=== PATIENT | female | born 1995 | race Caucasian/White ===

== ENCOUNTER 2024-06-13 17:54 | Inpatient (IN) ==
[2024-06-13] MEDS ORDERED: IOPAMIDOL 100 ML BOTTLE IV ONE (17:55)
[2024-06-13 18:36] LABS: Basophils # (Auto) 0.03 K/mcL (0.00-0.30); Basophils % (Auto) 0.2 % (0.0-2.0); Eosinophils # (Auto) 0.01 K/mcL (0.00-0.70); Eosinophils % (Auto) 0.1 % (0.0-7.0); Hemoglobin 13.4 g/dL (11.2-15.7); Lymphocytes # (Auto) 2.18 K/mcL (1.50-4.80); Lymphocytes % (Auto) 13.1 % (15.5-49.0); Mean Cell Volume 90.7 fL (80.0-100.0); Mean Corpuscular HGB Conc 32.7 g/dL (31.0-36.0); Mean Platelet Volume 10.9 fL (8.8-12.5); Monocytes # (Auto) 0.59 K/mcL (0.10-0.90); Monocytes % (Auto) 3.5 % (1.0-12.0); Neutrophils % (Auto) 82.9 % (38.0-78.0); Platelet Count 368 K/mcL (140-440); RBC 4.52 M/mcL (3.59-5.38); WBC 16.7 K/mcL (4.5-11.0)
[2024-06-13] MEDS: LACTATED RINGERS 1,000 ML IV ONE (18:50)
[2024-06-13] MEDS: fentaNYL 100 MCG/2 ML VIAL IV ONE (18:59)
[2024-06-13] MEDS: ONDANSETRON 4 MG/2 ML VIAL IV ONE (19:00)
[2024-06-13 19:03] LABS: ALT/SGPT 90 U/L (<40); AST/SGOT 77 U/L (<32); Albumin 4.2 gm/dL (3.2-5.2); Albumin/Globulin Ratio 1.6 (1.0-2.3); Alkaline Phosphatase 95 U/L (39-117); Bilirubin,Total 0.7 mg/dL (0.1-1.0); Blood Urea Nitrogen 9 mg/dL (6-20); Carbon Dioxide 21 mmol/L (22-30); Chloride 105 mmol/L (96-108); Globulin 2.7 gm/dL (2.2-3.7); Glomerular Filtration Rate 119; Glucose 166 mg/dL (70-105); Phosphorous 3.8 mg/dL (2.5-4.5); Sodium 138 mmol/L (133-145)
[2024-06-13] MEDS: HYDROmorphone 0.5 MG/0.5 ML SYRINGE IV ONE (19:45)
[2024-06-13 20:10] LABS: HCG,Serum Negative
[2024-06-13] MEDS: HYDROmorphone 1 MG/ML SYRINGE IV ONE (22:25)
[2024-06-13] MEDS: HYDROmorphone 1 MG/ML SYRINGE IM ONE (22:26)
[2024-06-13 23:00] LABS: Appearance,Urine Clear (Clear); Bacteria,Urine 0 /hpf (0); Bilirubin,Urine Small mg/dL (Negative); Color,Urine Yellow; Culture Indicated,Urine No; Glucose,Urine (UA) 100 mg/dL (Negative); Ketones,Urine >=160 mg/dL (Negative); Leukocyte Esterase,Urine Negative /uL (Negative); Nitrate,Urine Negative (Negative); PH,Urine 6.5 (5.0-9.0); Protein,Urine Negative (Negative); Specific Gravity,Urine 1.015 (1.000-1.035); Urine Blood Negative ery/mcL (Negative); Urine RBC 1 /hpf (0-3); Urine Squamous Epithelial Cell 1 /hpf (0-4); Urine WBC 1 /hpf (0-4)
[2024-06-13] MEDS: PIPERACILLIN SODIUM/TAZOBACTAM 3.375 GM in DEXTROSE 5% IN WATER 100 ML IV SCH (23:49)
[2024-06-14] MEDS: DEXTROSE 5%-LR 1,000 ML IV SCH (02:04)
[2024-06-14] MEDS: HYDROmorphone 0.5 MG/0.5 ML SYRINGE IV PRN ×2 (02:17→18:34)
[2024-06-14] MEDS: ONDANSETRON 4 MG/2 ML VIAL IV PRN (06:24)
[2024-06-14 07:32] LABS: Hematocrit 38.1 % (34.1-44.9); Hemoglobin 12.5 g/dL (11.2-15.7); Mean Cell Volume 91.4 fL (80.0-100.0); Mean Corpuscular HGB Conc 32.8 g/dL (31.0-36.0); Mean Platelet Volume 11.5 fL (8.8-12.5); Platelet Count 265 K/mcL (140-440); RBC 4.17 M/mcL (3.59-5.38); Red Cell Distribution Width 12.9 % (11.5-14.5); WBC 10.9 K/mcL (4.5-11.0)
[2024-06-14 07:45] LABS: ALT/SGPT 116 U/L (<40); AST/SGOT 85 U/L (<32); Albumin 3.6 gm/dL (3.2-5.2); Albumin/Globulin Ratio 1.6 (1.0-2.3); Alkaline Phosphatase 83 U/L (39-117); Bilirubin,Total 0.5 mg/dL (0.1-1.0); Blood Urea Nitrogen 7 mg/dL (6-20); Calcium 8.5 mg/dL (8.6-10.4); Carbon Dioxide 22 mmol/L (22-30); Chloride 107 mmol/L (96-108); Globulin 2.2 gm/dL (2.2-3.7); Glomerular Filtration Rate 119; Glucose 128 mg/dL (70-105); Sodium 140 mmol/L (133-145)
[2024-06-14] MEDS ORDERED: fentaNYL 100 MCG/2 ML VIAL ONE ×2 (09:05→10:38)
[2024-06-14] MEDS ORDERED: PROPOFOL 200 MG/20 ML VIAL IV ONE (09:05)
[2024-06-14] MEDS ORDERED: MIDAZOLAM 2 MG/2 ML VIAL ONE ×2 (09:05→09:46)
[2024-06-14] MEDS ORDERED: ONDANSETRON 4 MG/2 ML VIAL ONE (09:09)
[2024-06-14] MEDS ORDERED: ROCURONIUM 10 MG/ML ML IV ONE ×2 (09:09→13:06)
[2024-06-14] MEDS ORDERED: LIDOCAINE 2% PF 5 ML VIAL ONE (09:09)
[2024-06-14] MEDS ORDERED: GLYCOPYRROLATE 0.2 MG/ML VIAL IV ONE (09:46)
[2024-06-14] MEDS: BUPIVACAINE W/EPI 0.25% 50 ML VIAL IJ ONE (09:57)
[2024-06-14] MEDS ORDERED: MEPERIDINE 25 MG/ML VIAL IV PRN (10:20)
[2024-06-14] MEDS ORDERED: fentaNYL 100 MCG/2 ML VIAL IV PRN (10:20)
[2024-06-14] MEDS ORDERED: IPRATROPIUM/ALBUTEROL 3 ML AMPUL.NEB NEB PRN ×2 (10:20→14:20)
[2024-06-14] MEDS ORDERED: METOCLOPRAMIDE 10 MG/2 ML VIAL IV PRN ×2 (10:20→14:20)
[2024-06-14] MEDS ORDERED: MAGNESIUM SULFATE 2 GM/50 ML BAG IV ONE (10:22)
[2024-06-14] MEDS ORDERED: HYDROmorphone 1 MG/ML SYRINGE ONE (11:30)
[2024-06-14] MEDS: GELATIN SPONGE,ABSORBABLE 1 EACH SPONGE TOPICAL ONE ×2 (12:49→13:12)
[2024-06-14] MEDS: THROMBIN (BOVINE) 5,000 UNIT VIAL TOPICAL ONE ×2 (12:51→13:12)
[2024-06-14] MEDS ORDERED: TRANEXAMIC ACID 1,000 MG/10 ML VIAL ONE (13:06)
[2024-06-14] MEDS ORDERED: SUGAMMADEX SODIUM 200 MG/2 ML VIAL IV ONE (13:33)
[2024-06-14] MEDS ORDERED: ONDANSETRON 4 MG/2 ML VIAL IV PRN (14:20)
[2024-06-14] MEDS: fentaNYL 100 MCG/2 ML VIAL IV PRN (14:39)
[2024-06-14] MEDS: ACETAMINOPHEN 1,000 MG/100 ML BAG IV ONE (14:53)
[2024-06-14] MEDS: MEPERIDINE 25 MG/ML VIAL IV PRN (14:56)
[2024-06-14 18:12] LABS: Basophils # (Auto) 0.01 K/mcL (0.00-0.30); Basophils % (Auto) 0.1 % (0.0-2.0); Eosinophils # (Auto) 0 K/mcL (0.00-0.70); Eosinophils % (Auto) 0 % (0.0-7.0); Hematocrit 35.7 % (34.1-44.9); Hemoglobin 11.4 g/dL (11.2-15.7); Lymphocytes # (Auto) 0.94 K/mcL (1.50-4.80); Lymphocytes % (Auto) 6.7 % (15.5-49.0); Mean Cell Volume 93.5 fL (80.0-100.0); Mean Corpuscular HGB Conc 31.9 g/dL (31.0-36.0); Monocytes # (Auto) 0.49 K/mcL (0.10-0.90); Monocytes % (Auto) 3.5 % (1.0-12.0); Neutrophils % (Auto) 89.5 % (38.0-78.0); Platelet Count 274 K/mcL (140-440); RBC 3.82 M/mcL (3.59-5.38); Red Cell Distribution Width 13.1 % (11.5-14.5); WBC 14.1 K/mcL (4.5-11.0)
[2024-06-14] MEDS: oxyCODONE IR 5 MG TABLET PO PRN (19:22)
[2024-06-14] MEDS: HYDROmorphone 1 MG/ML SYRINGE ONE (21:17)
[2024-06-14] MEDS: ACETAMINOPHEN 650 MG/65 ML BAG IV PRN (21:24)
[2024-06-15] MEDS: PROMETHAZINE 50 MG/ML AMPUL IM PRN (01:07)
[2024-06-15 07:06] LABS: Hematocrit 36.3 % (34.1-44.9); Hemoglobin 11.6 g/dL (11.2-15.7); Mean Cell Volume 93.6 fL (80.0-100.0); Mean Platelet Volume 11.5 fL (8.8-12.5); Platelet Count 313 K/mcL (140-440); RBC 3.88 M/mcL (3.59-5.38); Red Cell Distribution Width 13.2 % (11.5-14.5); WBC 11.5 K/mcL (4.5-11.0)
[2024-06-15] MEDS: 0.9 % SODIUM CHLORIDE 250 ML IV SCH (07:10)
[2024-06-15 07:57] LABS: ALT/SGPT 152 U/L (<40); AST/SGOT 111 U/L (<32); Albumin 3.5 gm/dL (3.2-5.2); Albumin/Globulin Ratio 1.8 (1.0-2.3); Alkaline Phosphatase 81 U/L (39-117); Bilirubin,Total 2.7 mg/dL (0.1-1.0); Blood Urea Nitrogen 3 mg/dL (6-20); Calcium 7.9 mg/dL (8.6-10.4); Carbon Dioxide 23 mmol/L (22-30); Chloride 106 mmol/L (96-108); Globulin 1.9 gm/dL (2.2-3.7); Glomerular Filtration Rate 119; Glucose 194 mg/dL (70-105); Potassium 3.8 mmol/L (3.3-5.1); Sodium 139 mmol/L (133-145)
[2024-06-15] MEDS ORDERED: ALBUTEROL SULFATE 60 PUFF INHALER INH PRN (19:51)
[2024-06-15] MEDS: traZODone HCL 50 MG TABLET PO SCH (20:16)
[2024-06-15] MEDS: DEXTROSE 5%-LR 1,000 ML IV SCH (21:41)
[2024-06-16 06:25] LABS: Hematocrit 36.3 % (34.1-44.9); Hemoglobin 11.6 g/dL (11.2-15.7); Mean Cell Volume 93.3 fL (80.0-100.0); Mean Platelet Volume 11.4 fL (8.8-12.5); Platelet Count 296 K/mcL (140-440); RBC 3.89 M/mcL (3.59-5.38); Red Cell Distribution Width 13.5 % (11.5-14.5); WBC 12.1 K/mcL (4.5-11.0)
[2024-06-16 06:55] LABS: ALT/SGPT 206 U/L (<40); AST/SGOT 129 U/L (<32); Albumin 3.1 gm/dL (3.2-5.2); Albumin/Globulin Ratio 1.3 (1.0-2.3); Alkaline Phosphatase 100 U/L (39-117); Bilirubin,Total 2.5 mg/dL (0.1-1.0); Blood Urea Nitrogen 3 mg/dL (6-20); Calcium 8.2 mg/dL (8.6-10.4); Carbon Dioxide 24 mmol/L (22-30); Chloride 104 mmol/L (96-108); Globulin 2.3 gm/dL (2.2-3.7); Glomerular Filtration Rate 125; Glucose 127 mg/dL (70-105); Potassium 3.8 mmol/L (3.3-5.1); Sodium 137 mmol/L (133-145)
[2024-06-16 13:46] LABS: Basophils # (Auto) 0.04 K/mcL (0.00-0.30); Basophils % (Auto) 0.3 % (0.0-2.0); Eosinophils # (Auto) 0.02 K/mcL (0.00-0.70); Eosinophils % (Auto) 0.1 % (0.0-7.0); Hematocrit 37.3 % (34.1-44.9); Lymphocytes # (Auto) 1.39 K/mcL (1.50-4.80); Lymphocytes % (Auto) 8.8 % (15.5-49.0); Mean Corpuscular HGB Conc 32.2 g/dL (31.0-36.0); Mean Platelet Volume 10.9 fL (8.8-12.5); Monocytes % (Auto) 6.4 % (1.0-12.0); Neutrophils % (Auto) 84.1 % (38.0-78.0); Platelet Count 311 K/mcL (140-440); RBC 4.01 M/mcL (3.59-5.38); Red Cell Distribution Width 13.3 % (11.5-14.5); WBC 15.7 K/mcL (4.5-11.0)
[2024-06-16 14:16] LABS: ALT/SGPT 195 U/L (<40); AST/SGOT 98 U/L (<32); Albumin 3.2 gm/dL (3.2-5.2); Albumin/Globulin Ratio 1.2 (1.0-2.3); Alkaline Phosphatase 105 U/L (39-117); Blood Urea Nitrogen 2 mg/dL (6-20); Calcium 8.4 mg/dL (8.6-10.4); Carbon Dioxide 24 mmol/L (22-30); Chloride 104 mmol/L (96-108); Globulin 2.6 gm/dL (2.2-3.7); Glomerular Filtration Rate 125; Glucose 123 mg/dL (70-105); Potassium 3.7 mmol/L (3.3-5.1); Sodium 137 mmol/L (133-145)
[2024-06-16] MEDS: KETOROLAC 15 MG/ML VIAL IV ONE (15:58)
[2024-06-16] MEDS: DEXTROSE 5%-LR 1,000 ML IV SCH (16:23)
[2024-06-16] MEDS ORDERED: IOPAMIDOL 100 ML BOTTLE IV ONE (16:41)
[2024-06-16] MEDS: CIPROFLOXACIN 400 MG/200 ML BAG IV SCH (18:56)
[2024-06-16] MEDS: KETOROLAC 15 MG/ML VIAL IV SCH (22:28)
[2024-06-17 06:42] LABS: Hematocrit 32.9 % (34.1-44.9); Hemoglobin 10.7 g/dL (11.2-15.7); Mean Cell Volume 92.4 fL (80.0-100.0); Mean Corpuscular HGB Conc 32.5 g/dL (31.0-36.0); Mean Platelet Volume 11.4 fL (8.8-12.5); Platelet Count 285 K/mcL (140-440); RBC 3.56 M/mcL (3.59-5.38); Red Cell Distribution Width 13.6 % (11.5-14.5); WBC 15.6 K/mcL (4.5-11.0)
[2024-06-17 07:31] LABS: ALT/SGPT 126 U/L (<40); AST/SGOT 41 U/L (<32); Albumin 2.9 gm/dL (3.2-5.2); Albumin/Globulin Ratio 1.3 (1.0-2.3); Alkaline Phosphatase 95 U/L (39-117); Bilirubin,Total 1.4 mg/dL (0.1-1.0); Blood Urea Nitrogen 4 mg/dL (6-20); Calcium 8.2 mg/dL (8.6-10.4); Carbon Dioxide 22 mmol/L (22-30); Chloride 106 mmol/L (96-108); Globulin 2.3 gm/dL (2.2-3.7); Glomerular Filtration Rate 133; Glucose 134 mg/dL (70-105); Potassium 3.6 mmol/L (3.3-5.1); Sodium 137 mmol/L (133-145)
[2024-06-17] MEDS: PROMETHAZINE 25 MG/ML VIAL IM PRN (10:45)
[2024-06-17] MEDS ORDERED: PROPOFOL 200 MG/20 ML VIAL IV ONE ×2 (11:50)
[2024-06-17] MEDS ORDERED: ROCURONIUM 10 MG/ML ML IV ONE ×2 (11:51→14:38)
[2024-06-17] MEDS ORDERED: LIDOCAINE 2% PF 5 ML VIAL ONE (11:51)
[2024-06-17] MEDS ORDERED: KETAMINE 50 MG/ML Syringe IV ONE (11:52)
[2024-06-17] MEDS ORDERED: HYDROmorphone 1 MG/ML SYRINGE ONE (11:53)
[2024-06-17] MEDS ORDERED: ESMOLOL 100 MG/10 ML VIAL IV ONE (13:37)
[2024-06-17] MEDS ORDERED: DEXAMETHASONE 10 MG/ML VIAL ONE (14:18)
[2024-06-17] MEDS ORDERED: ceFAZolin 1 GM VIAL ONE (14:38)
[2024-06-17] MEDS ORDERED: METHOCARBAMOL 1,000 MG/10 ML VIAL IV PRN (16:18)
[2024-06-17] MEDS ORDERED: NALOXONE HCL 0.4 MG/ML VIAL IV PRN (16:18)
[2024-06-17] MEDS ORDERED: IPRATROPIUM/ALBUTEROL 3 ML AMPUL.NEB NEB PRN (16:18)
[2024-06-17] MEDS ORDERED: LACTATED RINGERS 250 ML IV PRN (16:18)
[2024-06-17] MEDS ORDERED: diphenhydrAMINE 50 MG/ML VIAL IV PRN (16:18)
[2024-06-17] MEDS ORDERED: MEPERIDINE 25 MG/ML VIAL IV PRN (16:18)
[2024-06-17] MEDS ORDERED: SUGAMMADEX SODIUM 200 MG/2 ML VIAL IV ONE (16:38)
[2024-06-17] MEDS: BACITRACIN TOPICAL OINT 15 GM TUBE TOPICAL ONE (16:45)
[2024-06-17] MEDS ORDERED: fentaNYL 100 MCG/2 ML VIAL ONE (16:46)
[2024-06-17] MEDS: HYDROmorphone 0.5 MG/0.5 ML SYRINGE IV PRN (17:21)
[2024-06-17] MEDS: fentaNYL 100 MCG/2 ML VIAL IV PRN (17:30)
[2024-06-17] MEDS: ONDANSETRON 4 MG/2 ML VIAL IV PRN (17:33)
[2024-06-17] MEDS: LACTATED RINGERS 1,000 ML IV SCH (17:42)
[2024-06-17] MEDS ORDERED: IOPAMIDOL 100 ML BOTTLE IV ONE (21:10)
[2024-06-18] MEDS: VANCOMYCIN PER PHARMACY IV ONE (00:35)
[2024-06-18] MEDS: VANCOMYCIN 1,000 MG in 0.9 % SODIUM CHLORIDE 250 ML IV SCH (00:35)
[2024-06-18 06:34] LABS: Basophils # (Auto) 0.02 K/mcL (0.00-0.30); Basophils % (Auto) 0.1 % (0.0-2.0); Eosinophils # (Auto) 0 K/mcL (0.00-0.70); Eosinophils % (Auto) 0 % (0.0-7.0); Hematocrit 32.5 % (34.1-44.9); Hemoglobin 10.7 g/dL (11.2-15.7); Lymphocytes # (Auto) 0.99 K/mcL (1.50-4.80); Lymphocytes % (Auto) 6.6 % (15.5-49.0); Mean Cell Volume 92.3 fL (80.0-100.0); Mean Corpuscular HGB Conc 32.9 g/dL (31.0-36.0); Mean Platelet Volume 11.4 fL (8.8-12.5); Monocytes # (Auto) 0.86 K/mcL (0.10-0.90); Monocytes % (Auto) 5.7 % (1.0-12.0); Neutrophils % (Auto) 87.3 % (38.0-78.0); Platelet Count 313 K/mcL (140-440); RBC 3.52 M/mcL (3.59-5.38); Red Cell Distribution Width 13.6 % (11.5-14.5); WBC 15.1 K/mcL (4.5-11.0)
[2024-06-18] MEDS ORDERED: VANCOMYCIN PER PHARMACY IV SCH (06:45)
[2024-06-18 06:46] LABS: Amylase 66 U/L (28-100)
[2024-06-18 06:48] LABS: ALT/SGPT 72 U/L (<40); AST/SGOT 24 U/L (<32); Albumin 2.5 gm/dL (3.2-5.2); Alkaline Phosphatase 82 U/L (39-117); Bilirubin,Total 0.8 mg/dL (0.1-1.0); Blood Urea Nitrogen 5 mg/dL (6-20); Calcium 8.3 mg/dL (8.6-10.4); Carbon Dioxide 24 mmol/L (22-30); Chloride 103 mmol/L (96-108); Globulin 2.5 gm/dL (2.2-3.7); Glomerular Filtration Rate 133; Glucose 190 mg/dL (70-105); Sodium 135 mmol/L (133-145)
[2024-06-18] MEDS: VANCOMYCIN 1,500 MG in 0.9 % SODIUM CHLORIDE 500 ML IV SCH (10:09)
[2024-06-18] MEDS: DEXTROSE 5%-LR 1,000 ML IV SCH (10:10)
[2024-06-19 07:38] LABS: Basophils # (Auto) 0.02 K/mcL (0.00-0.30); Basophils % (Auto) 0.2 % (0.0-2.0); Eosinophils # (Auto) 0.19 K/mcL (0.00-0.70); Eosinophils % (Auto) 1.8 % (0.0-7.0); Hematocrit 31.1 % (34.1-44.9); Hemoglobin 9.8 g/dL (11.2-15.7); Lymphocytes # (Auto) 2.07 K/mcL (1.50-4.80); Lymphocytes % (Auto) 19.4 % (15.5-49.0); Mean Cell Volume 94.5 fL (80.0-100.0); Mean Corpuscular HGB Conc 31.5 g/dL (31.0-36.0); Mean Platelet Volume 10.5 fL (8.8-12.5); Monocytes # (Auto) 0.75 K/mcL (0.10-0.90); Neutrophils % (Auto) 71.2 % (38.0-78.0); Platelet Count 327 K/mcL (140-440); RBC 3.29 M/mcL (3.59-5.38); Red Cell Distribution Width 13.9 % (11.5-14.5); WBC 10.7 K/mcL (4.5-11.0)
[2024-06-19 08:02] LABS: Amylase 77 U/L (28-100)
[2024-06-19 08:04] LABS: ALT/SGPT 66 U/L (<40); AST/SGOT 37 U/L (<32); Albumin 2.7 gm/dL (3.2-5.2); Alkaline Phosphatase 84 U/L (39-117); Bilirubin,Total 0.5 mg/dL (0.1-1.0); Blood Urea Nitrogen 8 mg/dL (6-20); Calcium 8.4 mg/dL (8.6-10.4); Carbon Dioxide 25 mmol/L (22-30); Chloride 107 mmol/L (96-108); Globulin 2.6 gm/dL (2.2-3.7); Glomerular Filtration Rate 119; Glucose 132 mg/dL (70-105); Potassium 3.4 mmol/L (3.3-5.1); Sodium 140 mmol/L (133-145)
[2024-06-19] MEDS: METOPROLOL TARTRATE 5 MG/5 ML VIAL IV PRN (16:11)
[2024-06-19] MEDS: ENOXAPARIN 40 MG/0.4 ML SYRINGE SQ SCH (16:11)
[2024-06-19] MEDS: POTASSIUM CHLORIDE 20 MEQ TABLET PO SCH (16:31)
[2024-06-19] MEDS: VANCOMYCIN 1,500 MG in 0.9 % SODIUM CHLORIDE 500 ML IV SCH (20:56)
[2024-06-20 06:50] LABS: Basophils # (Auto) 0.03 K/mcL (0.00-0.30); Basophils % (Auto) 0.2 % (0.0-2.0); Eosinophils # (Auto) 0.46 K/mcL (0.00-0.70); Eosinophils % (Auto) 3.8 % (0.0-7.0); Hematocrit 28.5 % (34.1-44.9); Hemoglobin 9.3 g/dL (11.2-15.7); Lymphocytes # (Auto) 2.23 K/mcL (1.50-4.80); Lymphocytes % (Auto) 18.4 % (15.5-49.0); Mean Cell Volume 92.2 fL (80.0-100.0); Mean Corpuscular HGB Conc 32.6 g/dL (31.0-36.0); Mean Platelet Volume 10.9 fL (8.8-12.5); Monocytes # (Auto) 0.93 K/mcL (0.10-0.90); Monocytes % (Auto) 7.7 % (1.0-12.0); Neutrophils % (Auto) 69.5 % (38.0-78.0); Platelet Count 355 K/mcL (140-440); RBC 3.09 M/mcL (3.59-5.38); Red Cell Distribution Width 13.6 % (11.5-14.5); WBC 12.1 K/mcL (4.5-11.0)
[2024-06-20 06:53] LABS: Amylase 73 U/L (28-100)
[2024-06-20 07:02] LABS: ALT/SGPT 49 U/L (<40); AST/SGOT 32 U/L (<32); Albumin 2.6 gm/dL (3.2-5.2); Alkaline Phosphatase 127 U/L (39-117); Bilirubin,Total 0.7 mg/dL (0.1-1.0); Blood Urea Nitrogen 6 mg/dL (6-20); Calcium 8.4 mg/dL (8.6-10.4); Carbon Dioxide 25 mmol/L (22-30); Chloride 105 mmol/L (96-108); Globulin 2.5 gm/dL (2.2-3.7); Glomerular Filtration Rate 119; Glucose 123 mg/dL (70-105); Potassium 3.6 mmol/L (3.3-5.1); Sodium 138 mmol/L (133-145)
[2024-06-21 06:46] LABS: Amylase 74 U/L (28-100)
[2024-06-21 06:46] LABS: ALT/SGPT 41 U/L (<40); AST/SGOT 27 U/L (<32); Albumin 2.6 gm/dL (3.2-5.2); Alkaline Phosphatase 142 U/L (39-117); Bilirubin,Total 0.5 mg/dL (0.1-1.0); Blood Urea Nitrogen 5 mg/dL (6-20); Calcium 8.4 mg/dL (8.6-10.4); Carbon Dioxide 24 mmol/L (22-30); Chloride 105 mmol/L (96-108); Globulin 2.6 gm/dL (2.2-3.7); Glomerular Filtration Rate 119; Glucose 116 mg/dL (70-105); Potassium 3.5 mmol/L (3.3-5.1); Sodium 137 mmol/L (133-145)
[2024-06-21] MEDS: LORazepam 0.5 MG TABLET PO PRN (10:13)
[2024-06-21] MEDS: VANCOMYCIN 1,000 MG in 0.9 % SODIUM CHLORIDE 250 ML IV SCH (10:59)
[2024-06-21] MEDS: oxyCODONE IR 5 MG TABLET PO PRN (13:30)
[2024-06-21 20:28] LABS: Basophils # (Auto) 0.04 K/mcL (0.00-0.30); Basophils % (Auto) 0.3 % (0.0-2.0); Eosinophils # (Auto) 0.44 K/mcL (0.00-0.70); Eosinophils % (Auto) 3.4 % (0.0-7.0); Hematocrit 28.3 % (34.1-44.9); Lymphocytes # (Auto) 1.87 K/mcL (1.50-4.80); Lymphocytes % (Auto) 14.4 % (15.5-49.0); Mean Cell Volume 92.8 fL (80.0-100.0); Mean Corpuscular HGB Conc 31.8 g/dL (31.0-36.0); Mean Platelet Volume 10.9 fL (8.8-12.5); Monocytes # (Auto) 0.94 K/mcL (0.10-0.90); Monocytes % (Auto) 7.3 % (1.0-12.0); Platelet Count 362 K/mcL (140-440); RBC 3.05 M/mcL (3.59-5.38); Red Cell Distribution Width 13.4 % (11.5-14.5)
[2024-06-21 20:34] LABS: ALT/SGPT 46 U/L (<40); AST/SGOT 31 U/L (<32); Albumin 2.9 gm/dL (3.2-5.2); Alkaline Phosphatase 181 U/L (39-117); Bilirubin,Total 0.6 mg/dL (0.1-1.0); Blood Urea Nitrogen 5 mg/dL (6-20); Calcium 8.7 mg/dL (8.6-10.4); Carbon Dioxide 25 mmol/L (22-30); Chloride 103 mmol/L (96-108); Glomerular Filtration Rate 119; Glucose 122 mg/dL (70-105); Potassium 3.5 mmol/L (3.3-5.1); Sodium 136 mmol/L (133-145)
[2024-06-21 21:52] LABS: Basophils # (Auto) 0.05 K/mcL (0.00-0.30); Basophils % (Auto) 0.3 % (0.0-2.0); Eosinophils # (Auto) 0.42 K/mcL (0.00-0.70); Eosinophils % (Auto) 2.5 % (0.0-7.0); Hematocrit 29.1 % (34.1-44.9); Hemoglobin 9.4 g/dL (11.2-15.7); Lymphocytes # (Auto) 2.21 K/mcL (1.50-4.80); Lymphocytes % (Auto) 13.2 % (15.5-49.0); Mean Cell Volume 91.8 fL (80.0-100.0); Mean Corpuscular HGB Conc 32.3 g/dL (31.0-36.0); Mean Platelet Volume 10.5 fL (8.8-12.5); Monocytes # (Auto) 0.99 K/mcL (0.10-0.90); Monocytes % (Auto) 5.9 % (1.0-12.0); Neutrophils % (Auto) 77.3 % (38.0-78.0); Platelet Count 415 K/mcL (140-440); RBC 3.17 M/mcL (3.59-5.38); Red Cell Distribution Width 13.2 % (11.5-14.5); WBC 16.7 K/mcL (4.5-11.0)
[2024-06-22 07:01] LABS: Basophils # (Auto) 0.04 K/mcL (0.00-0.30); Basophils % (Auto) 0.3 % (0.0-2.0); Eosinophils # (Auto) 0.34 K/mcL (0.00-0.70); Eosinophils % (Auto) 2.5 % (0.0-7.0); Hematocrit 28.4 % (34.1-44.9); Hemoglobin 9.2 g/dL (11.2-15.7); Lymphocytes # (Auto) 1.85 K/mcL (1.50-4.80); Lymphocytes % (Auto) 13.8 % (15.5-49.0); Mean Cell Volume 92.5 fL (80.0-100.0); Mean Corpuscular HGB Conc 32.4 g/dL (31.0-36.0); Mean Platelet Volume 10.7 fL (8.8-12.5); Monocytes # (Auto) 0.86 K/mcL (0.10-0.90); Monocytes % (Auto) 6.4 % (1.0-12.0); Neutrophils % (Auto) 76.2 % (38.0-78.0); Platelet Count 410 K/mcL (140-440); RBC 3.07 M/mcL (3.59-5.38); WBC 13.4 K/mcL (4.5-11.0)
[2024-06-22 07:16] LABS: ALT/SGPT 9 U/L (<40); AST/SGOT 15 U/L (<32); Albumin 3.7 gm/dL (3.2-5.2); Alkaline Phosphatase 95 U/L (39-117); Bilirubin,Direct 0.3 mg/dL (<0.3); Bilirubin,Total 0.7 mg/dL (0.1-1.0); Blood Urea Nitrogen 12 mg/dL (6-20); Calcium 9.3 mg/dL (8.6-10.4); Carbon Dioxide 26 mmol/L (22-30); Chloride 96 mmol/L (96-108); Globulin 3.6 gm/dL (2.2-3.7); Glomerular Filtration Rate 133; Glucose 137 mg/dL (70-105); Lactate Dehydrogenase 224 U/L (135-225); Phosphorous 3.6 mg/dL (2.5-4.5); Potassium 3.7 mmol/L (3.3-5.1); Sodium 137 mmol/L (133-145); Triglycerides 87 mg/dL (<150); Uric Acid 4.1 mg/dL (2.5-8.0)
[2024-06-22] MEDS: FUROSEMIDE 40 MG/4 ML VIAL IV SCH (09:07)
[2024-06-22] MEDS: METOPROLOL TARTRATE 25 MG TABLET PO SCH (09:07)
== END 2024-06-22 14:40 | disposition home or self-care (01) | DRG 417 ==
LOC: MEDSUR 17:54 → ED 17:54 → MEDSUR 06-14 00:30
PROVIDERS: ADMIT Surgery Surgical Critical Care; ATTEND Surgery Surgical Critical Care